=== PATIENT | female | born 1980 | race Hispanic/Latino ===

== ENCOUNTER → 2024-05-29 14:49 | Outpatient (REF) | payer OTHER, SELFPAY ==
[2024-05-30 10:39] LABS: ALT (SGPT) 26 U/L (0-35); AST (SGOT) 31 U/L (14-36); Albumin 4.6 g/dl (3.5-5.0); Alkaline Phosphatase 68 U/L (38-126); Blood Urea Nitrogen 15 mg/dl (7-17); Calcium 9.4 mg/dl (8.4-10.2); Carbon Dioxide 26 mmol/L (22-30); Chloride 104 mmol/L (98-107); Glucose 96 mg/dl (70-99); HDL Cholesterol 86 mg/dl; LDL Cholesterol, Calculated 119 mg/dl; Potassium 4.1 mmol/L (3.5-5.1); Sodium 140 mmol/L (135-145); Total Bilirubin 0.3 mg/dl (0.2-1.3); Total Cholesterol 221 mg/dl (50-199); Total Protein 7.6 g/dl (6.3-8.2); Triglyceride 80 mg/dl (10-149); Very Low Density Lipoprotein 16 mg/dl (0-30); eGFR > 60.00
[2024-05-30 11:02] LABS: TSH Reflex To Free T4 1.34 uIU/ml (0.47-4.68)
[2024-05-30 11:10] LABS: Glycohemoglobin (HgbA1c) 5.8 % (4.0-5.6)
[2024-05-30 11:21] LABS: Hematocrit 30.2 % (37.0-47.0); Hemoglobin 8.7 g/dL (12.0-16.0); Mean Corp Hgb Conc. 28.8 g/dL (33.0-37.0); Mean Corpuscular Hgb 20.4 pg (27.0-31.0); Mean Corpuscular Volume 70.9 fL (81.0-99.0); Mean Platelet Volume 10.7 fL (7.4-10.4); Platelet Count 365 10^3/uL (130-400); Red Blood Cell Count 4.26 10^6/uL (4.20-5.40); Red Cell Dist. Width 17.4 % (11.5-14.5); White Blood Cell Count 5.3 10^3/uL (4.8-10.8)
[2024-06-07 04:45] LABS: HPV, High Risk Not Detected; HPV, High Risk Source Cervical
== END ==
LOC: CLINIC 14:49
PROVIDERS: ATTENDING PHYSICIAN Nurse Practitioner Adult Health
DX: Z00.00 Encounter for general adult medical examination without abnormal findings (principal); Z83.3 Family history of diabetes mellitus
CPT/HCPCS: 36415; 80053; 80061; 83036; 84443; 85027; 87624

== ENCOUNTER → 2024-06-12 10:07 | Outpatient (REF) | payer SELFPAY | LOC: WDC 10:07 | PROVIDERS: ATTENDING PHYSICIAN Nurse Practitioner Adult Health | DX: Z12.31 Encounter for screening mammogram for malignant neoplasm of breast (principal) | CPT/HCPCS: 77063; 77067 ==

== ENCOUNTER → 2024-06-19 10:24 | Outpatient (REF) | payer OTHER, SELFPAY | LOC: WDC 10:24 | PROVIDERS: ATTENDING PHYSICIAN Nurse Practitioner Adult Health | DX: R92.8 Other abnormal and inconclusive findings on diagnostic imaging of breast (principal) | CPT/HCPCS: 76642 ==

== ENCOUNTER → 2024-07-24 08:49 | Outpatient (REF) | payer SELFPAY ==
--- NOTE | 2024-07-24 14:05 | OID.BR.INTR ---
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
- -
Date of Contact: 07/24/24
Met with patient. Will follow up as needed per protocol.
== END ==
LOC: WDC 08:49
PROVIDERS: ATTENDING PHYSICIAN Nurse Practitioner Adult Health
DX: N63.10 Unspecified lump in the right breast, unspecified quadrant (principal)
CPT/HCPCS: 88305; 19083; 88341; 88342; A4648

== ENCOUNTER → 2024-08-23 08:06 | Outpatient (REF) | payer OTHER, SELFPAY ==
[2024-08-23 08:52] LABS: Hematocrit 38.1 % (37.0-47.0); Hemoglobin 12.5 g/dL (12.0-16.0); Mean Corp Hgb Conc. 32.8 g/dL (33.0-37.0); Mean Corpuscular Hgb 27.5 pg (27.0-31.0); Mean Corpuscular Volume 83.9 fL (81.0-99.0); Mean Platelet Volume 9.7 fL (7.4-10.4); Platelet Count 239 10^3/uL (130-400); Red Blood Cell Count 4.54 10^6/uL (4.20-5.40); Red Cell Dist. Width 17.7 % (11.5-14.5); White Blood Cell Count 4.8 10^3/uL (4.8-10.8)
[2024-08-23 10:04] LABS: Iron 51 ug/dl (37-170)
[2024-08-23 10:14] LABS: Percent Saturation 14 % (20-50); Total Iron Binding Capacity 347 ug/dl (265-497)
[2024-08-23 10:35] LABS: Ferritin 11.4 ng/ml (6.24-137)
[2024-08-23 10:50] LABS: Vitamin B12 960 pg/ml (239-931)
== END ==
LOC: CLINIC 08:06
PROVIDERS: ATTENDING PHYSICIAN Nurse Practitioner Adult Health
DX: D64.9 Anemia, unspecified (principal)
CPT/HCPCS: 36415; 82607; 82728; 83540; 83550; 85027

== ENCOUNTER → 2025-03-29 08:41 | Outpatient (REF) | payer OTHER, SELFPAY ==
[2025-03-29 09:40] LABS: Hematocrit 37.7 % (37.0-47.0); Hemoglobin 12.4 g/dL (12.0-16.0); Mean Corp Hgb Conc. 32.9 g/dL (33.0-37.0); Mean Corpuscular Volume 83.6 fL (81.0-99.0); Platelet Count 283 10^3/uL (130-400); Red Cell Dist. Width 17.0 % (11.5-14.5)
[2025-03-29 10:17] LABS: Iron 35 ug/dl (37-170)
== END ==
LOC: CLINIC 08:41
PROVIDERS: ATTENDING PHYSICIAN Nurse Practitioner Adult Health
DX: D50.0 Iron deficiency anemia secondary to blood loss (chronic) (principal)
CPT/HCPCS: 36415; 83540; 85027